=== PATIENT | male | born 1975 | race African-American/Black ===

== ENCOUNTER 2020-08-16 17:39 | Emergency (ER) | payer MEDICAID, OTHER ==
[~2020-08-16] VITALS: Ht 188 cm; Wt 74.8 kg
[~2020-08-16 17:39] MED LIST: CHLO4LIQ EX; SULF1TAB60 PO
[2020-08-16 21:47] LABS: Hematocrit 41.4 % (41.0-53.0); Hemoglobin 13.6 g/dL (13.5-17.5); Mean Corpuscular Hemoglobin 28.4 pg (28.0-32.0); Mean Corpuscular Hgb Conc. 32.9 g/dL (32.0-36.0); Mean Corpuscular Volume 86.4 fL (80.0-100.0); Platelet Count (auto) 383 10^3/uL (140-450); Red Blood Cells 4.78 10^6/uL (4.5-5.90); Red Cell Distribution Width 14.5 % (11.8-14.3); White Blood Cell 5.5 10^3/uL (4.4-10.8)
[2020-08-16 21:56] LABS: Basophils % (manual) 0 (0.0-2.0); Blast Cells 0; Metamyelocytes % 0; Myelocytes % 0; Promyelocytes % 0; Reactive Lymphocytes 0
[2020-08-16 22:07] LABS: Albumin 3.9 g/dL (3.4-5.0); Calcium 8.6 mg/dL (8.5-10.1); Potassium 4.1 mmol/L (3.5-5.1)
[2020-08-16 22:10] LABS: BUN/Creatinine Ratio 15.7; Bilirubin, Total 0.2 mg/dL (0.2-1.0)
[2020-08-16 22:30] LABS: Band Neutrophils % (manual) 1; Eosinophils % (manual) 18 (0-7); Lymphocytes % (manual) 39 (10.0-50.0); Monocytes % (manual) 6 (0-12)
[2020-08-16 22:53] LABS: INR 0.96 (0.9-1.15)
[2020-08-16 22:57] VITALS: BP 132/88
== END 2020-08-16 23:13 | disposition home or self-care (01) ==
LOC: ER 17:39
DX: R10.32 Left lower quadrant pain (principal); F17.210 Nicotine dependence, cigarettes, uncomplicated; Z79.899 Other long term (current) drug therapy
CPT/HCPCS: 36415; 70450; 74176; 80053; 83690; 85007; 85027; 85610; 85730

== ENCOUNTER 2024-10-03 01:34 | Emergency (ER) | payer MEDICAID ==
[~2024-10-03] VITALS: Ht 188 cm; Wt 84.1 kg
[2024-10-03 01:45] VITALS: BP 158/95; PULSE 95; RESP 18; TEMP 98; O2SAT 95
[2024-10-03] MEDS: LIDOCAINE 1% HCL (LOCAL ANESTH.) INJ 20ML MDV ID ONE (02:00)
[2024-10-03] MEDS ORDERED: IBUP-1456 PO (02:34)
[2024-10-03] MEDS ORDERED: DOXY100C4 PO (02:34)
--- NOTE | 2024-10-03 02:35 | ED.PDOC ---
History of Present Illness(SKN HPI Comments PATIENT HAS AN OPEN ABSCESS ON HIS LEFT LATERAL THIGH, STARTED 4 DAYS AGO. ABSCESS IS DRAINING YELLOW/BROWN EXUDATE. APPROXIMATELY 3CM IN DIAMETER. DENIES SENSORY DIABETES REPORTS HISTORY OF MRSA DENIES FEVER CHILLS NAUSEA OR VOMITING Chief Complaint: Abscess Time Seen by MD: 01:38 Primary Care Provider: NONE History of Present Illness: Nurses Notes, Medications, Allergies Allergies: Coded Allergies: NO KNOWN ALLERGIES (Unverified , 06/23/13) Home Meds Active Scripts Chlorhexidine Gluconate (Hibiclens) 4 % Liq, 4 % EX DAILY, #1 BOT Prov:ÁNGEL HOLLIDAY N.P. 06/23/13 Sulfamethoxazole W/Trimethopri (BACTRIM DS TABLET) 1 Tab Tb, 1 TAB PO BID, #20 TAB Prov:ÁNGEL HOLLIDAY N.P. 06/23/13 Information Source: Patient Mode of Arrival: Ambulatory Past Medical History PAST MEDICAL HISTORY: Denies Surgical History: Denies all surgeries Family History Family History: Unobtainable Social History Smoker: Cigarettes, Less Than 1 Pack/Day Alcohol: Occasionally Drugs: Denies Drug Use Lives In: Home Constitutional: denies: chills, diaphoresis, fatigue, fever, malaise, sweats, weakness, others EENTM: denies: blurred vision, double vision, ear bleeding, ear discharge, ear drainage, ear pain, ear ringing, eye pain, eye redness, hearing loss, mouth pain, mouth swelling, nasal discharge, nose bleeding, nose congestion, nose pain, photophobia, tearing, throat pain, throat swelling, voice changes, others Respiratory: denies: cough, hemoptysis, orthopnea, SOB at rest, shortness of breath, SOB with excertion, stridor, wheezing, others Cardiovascular: denies: chest pain, dizzy spells, diaphoresis, Dyspnea on exertion, edema, irregular heart beat, left arm pain, lightheadedness, palpitations, PND, syncope, others Gastrointestinal: denies: abdomen distended, abdominal pain, blood streaked bowels, constipated, diarrhea, dysphagia, difficulty swallowing, hematemesis, melena, nausea, poor appetite, poor fluid intake, rectal bleeding, rectal pain, vomiting, others Genitourinary: denies: burning, dysuria, flank pain, frequency, hematuria, incontinence, penile discharge, penile sore, pain, testicle pain, testicle swelling, urgency, others Neurological: denies: dizziness, fainting, headache, left sided numbness, left sided weakness, numbness, paresthesia, pre-existing deficit, right sided numbness, right sided weakness, seizure, speech problems, tingling, tremors, weakness, others Musculoskeletal: denies: back pain, gout, joint pain, joint swelling, muscle pain, muscle stiffness, neck pain, others Integumetry: reports: wounds (LEFT THIGH); denies: bruises, change in color, change in hair/nails, dryness, laceration, lesions, lumps, rash, others Allergic/Immunocompromised: denies: Difficulty Healing, Frequent Infections, Hives, Itching, others Hematologic/Lymphatic: denies: anemia, blood clots, easy bleeding, easy bruising, swollen glands, others Endocrine: denies: excessive hunger, excessive sweating, excessive thirst, excessive urination, flushing, intolerance to cold, intolerance to heat, unexplained weight gain, unexplained weight loss, others Psychiatric: denies: anxiety, bipolar disorder, depression, hopeless, panic disorder, schizophrenia, sleepless, suicidal, others Physical Exam General Appearance: No Apparent Distress, Normal HEENT: Pharynx Normal Neck: Full Range of Motion, Non-Tender, Normal Respiratory: Lungs Clear, No Respiratory Distress, Normal Breath Sounds Cardiovascular: No Edema, No JVD, No Murmur, No Gallop, Normal Peripheral Pulses, Regular Rate/Rhythm Breast Exam: Deferred Gastrointestinal: Non Tender, Soft Genitalia: Deferred Pelvic: Deferred Rectal: Deferred Extremities: Normal capillary refill, Normal inspection, Normal range of motion, Non-tender, No pedal edema Musculoskeletal : Apperance: Normal Neurologic: Alert, director of safety II-XII nml as Tested, No Motor Deficits, Normal Affect, Normal Mood, No Sensory Deficits Cerebellar Function: Normal Reflexes: Normal Skin: Dry, Normal Color, Warm, Wounds (LEFT MID LATERAL THIGH APPROXIMATE HALF DOLLAR SIZE INDURATED ABSCESS WITH CENTER PUNCTURE WOUND SURROUNDING ERYTHEMA YELLOWISH DRAINAGE NO NOTED STREAKING) Lymphatic: No Adenopathy Was a procedure done? Was a procedure done?: Yes Sedation Sedation?: No Informed consent obtained: Yes Incision and Drainage Incision and Drainage: Abscess Location LEFT MID LATERAL THIGH Anesthetic: Lidocaine with Epi Preparation: Betadine Incision and Wound: Pus, Blood Informed consent obtained: Yes Risks/benefits/alt described: Yes Notes PATIENT TOLERATED WELL WITH MINIMAL BLOOD LOSS PACKING PLACED PATIENT TO FOLLOW UP IN 2 DAYS. Differential Diagnosis (INTG) Differential Diagnosis: Cellulitis, Hematoma, Insect Envenomation, Puncture Wound Differential Diagnosis: Abscess X-Ray, Labs, Meds, VS Vital Signs Date Time Temp Pulse Resp B/P (MAP) Pulse Ox O2 Delivery O2 Flow Rate FiO2 10/03/24 01:58 Room Air 10/03/24 01:45 98.0 95 18 158/95 (116) 95 98.0 10/03/24 01:45 98.0 95 18 158/95 (116) 95 98.0 X-Ray, Labs, Meds, VS Comment SEE PROCEDURE. PATIENT TO FOLLOW UP IN 2 DAYS FOR PACKING REMOVAL AND RE-EVALUA TION OF ABSCESS. SCRIPT DOXY TWICE DAILY X7 DAYS. TAKE MEDICATIONS PRESCRIBED SIDE EFFECTS DISCUSSED. IBUPROFEN 800 T.I.D. P.R.N. PAIN. ER RETURN PRECAUTIONS GIVEN PATIENT INDICATES UNDERSTANDING AND AGREES WITH DISCHARGE PLAN OF CARE. Time of 1ST Reevaluation: 02:32 Reevaluation 1ST: Improved Patient Education/Counseling: Diagnosis, Treatment, Prognosis, Need For Follow Up Family Education/Counseling: No Family Present Departure 1 Departure Time of Disposition: 02:33 Impression: Primary Impression: Abscess Disposition: 01 HOME / SELF CARE / HOMELESS Condition: Stable Additional Instructions: FOLLOW UP IN 2 DAYS FOR ABSCESS RE-EVALUATION AND PACKING CHANGE. FOLLOW UP AT URGENT CARE, YOUR PRIMARY CARE DOCTORS OR BACK HERE IN THE ER IN 2 DAYS. MONITOR FOR INCREASED SIGNS SYMPTOMS OF INFECTION DISCUSSED e-Prescriptions Ibuprofen (Ibuprofen) 800 Mg Tab 800 MG PO Q8HP PRN for 5 Days, #15 TAB Prov: KONSTANTIN HERNANDEZ 10/03/24 Doxycycline Hyclate (Doxycycline Hyclate) 100 Mg Cap 100 MG PO BID for 7 Days, #14 CAP Prov: KONSTANTIN HERNANDEZ 10/03/24 Discharged With: Self Critical Care Note Critical Care Time?: No Stability Stability form required: No KONSTANTIN HERNANDEZ Oct 03, 2024 02:35
[2024-10-03] MEDS: HYDROcodone-ACET 5/325MG TAB PO ONE (02:44)
[2024-10-03] MEDS: cefTRIAXone SOD 1,000 MG VL IM ONE (02:44)
== END 2024-10-03 03:00 | disposition home or self-care (01) ==
LOC: ER 01:34
DX: L02.416 Cutaneous abscess of left lower limb (principal); F17.210 Nicotine dependence, cigarettes, uncomplicated; Z79.899 Other long term (current) drug therapy
CPT/HCPCS: 10060; 96372; 99283; J0696; J2003